=== PATIENT | female | born 1970 | race Caucasian/White ===

== ENCOUNTER → 2019-01-01 16:42 | Outpatient (CLI) | payer BC, SELFPAY | PROVIDERS: PCP Internal Medicine; Visit Provider Internal Medicine | DX: G47.33 Obstructive sleep apnea (adult) (pediatric) (principal); R40.0 Somnolence; R06.83 Snoring; R53.83 Other fatigue | CPT/HCPCS: G0399 ==

== ENCOUNTER → 2019-11-15 11:49 | Outpatient (CLI) | payer BC, SELFPAY ==
[2019-11-16 13:04] LABS: Covid-19 Nasal PCR Sendout Lex Not Detected
== END ==
PROVIDERS: Visit Provider Internal Medicine
DX: Z03.818 Encounter for observation for suspected exposure to other biological agents ruled out (principal)
CPT/HCPCS: U0004

== ENCOUNTER 2020-05-10 16:00 | Emergency (ER) | payer BC, SELFPAY ==
[2020-05-10 18:05] VITALS: BP 132/78; PULSE 69; RESP 17; TEMP 36.9; O2SAT 99; BMI 31.8
--- NOTE | 2020-05-10 18:26 | HMH.EDUTC ---
[facility] [place] Clinical Impression: Encounter for laboratory testing for COVID-19 virus Disposition: Home, Self-Care Condition on Discharge: Good Instructions: DI for COVID-19 (Suspected or Confirmed ), Coronavirus Disease 2019, Preventing the Spread of Coronavirus Discharge Instructions Additional Instructions: *Monitor Temp, Over the counter Motrin or Tylenol as directed/as needed Tylenol every 4 hours and Motrin every 6 hours (as long as your family doctor has told you that you can take it) for fever or pain. and straight to ER if unable to lower temp less than 101.0 after medication given Follow up IMMEDIATELY for new or worsening symptoms or no Noticeable improvement over the next 48-72 hours. 911 for difficulty breathing or swallowing You were tested for today for COVID19 your test result should be back in the next 24-48 hours, you may call to the [facility] to see if your test results are back in the next 48 hours [phone] [facility] hours are 9am-9pm You was given a handout with instructions for Self Quarantine and Self isolation for while you wait on test results and what to do if they are positive If you are positive the Health Dept will be contacting you also Referrals: Shahid Charlton [Primary Care Provider] - As needed Forms: Work/School Release Time of Disposition: 18:27 Medical Decision Making - Honorio Inquiry Pt receiving controlled substance: No Honorio was queried for this patient: No Vital Signs: 05/10/20 18:05 Temperature 98.4 F Temperature Source Oral Pulse Rate [Right Brachial] 69 Respiratory Rate 17 Blood Pressure [Right Arm] 132/7 L Blood Pressure Mean [Right Arm] 48 Blood Pressure Source [Right Arm] Automatic Cuff Blood Pressure Position [Right Arm] Sitting 02 Sat by Pulse Oximetry 99 Oxygen Delivery Method Room Air Orders (Tests/Meds): ORDERS Category Date Time Status Covid-19 Nasal PCR ([facility]) Routine Lab 05/10/20 17:58 Received [facility] [place] HPI - General Stated complaint: covid test Time Seen by Provider: 05/10/20 18:27 Mode of Arrival: Ambulatory Source of Information: Patient Limitations: No Limitations Description of Symptoms (Recalled from Triage Doc. by RN): COVID TEST. DENIES SYMPTOMS OR EXPOSURE. HAS SYMPTOMS HEENT Symptoms (Recalled from RN notes): No Resp Symptoms (Recalled from RN notes): No Skin Symptoms (Recalled from RN notes): No MS Symptoms (Recalled from RN notes): No Functional Status (Recalled from RN notes): WNL - History of Present Illness Provider Complaint: Patient state that she wants to get tested for COVID States that she is not having any symptoms but her has been - Related Data Allergies Allergy/AdvReac Type Severity Reaction Status Date / Time No Known Allergies Allergy Verified 05/10/20 18:21 - Worker's Comp Is this a Worker's Comp case?: No [facility] History - Hepatitis A Screen Drug use history?: No High risk sexual behaviors?: No History of sexually transmitted infection?: No Currently employed?: No Childcare worker?: No Do you have indoor plumbing?: Yes Do you have electricity?: Yes Attestation statement:: This patient has been screened for Hepatitis A risk factors. I have reviewed the patient's past medical history: Yes - Social History Alcohol Intake: never Occupational Status: other ROS Obtained: Yes All systems reviewed & no additional complaints, Yes Systems reviewed as appropriate & no additional complaints - Constitutional Constitutional: Reports system reviewed and no additional complaints, except as docu, Denies body ache, Denies chills, Denies fever(s), Denies headache(s) - ENT Ears, Nose, Mouth, and Throat: Reports system reviewed and no additional complaints, except as docu, Denies otalgia, Denies sinus pain, Denies sinus pressure, Denies sore throat - Cardiovascular Cardiovascular: Reports system reviewed and no additional complaints, except as docu - Respiratory Respiratory: Reports system r
[2020-05-10 18:31] VITALS: BP 132/78; PULSE 69; RESP 17; TEMP 36.9; O2SAT 99
== END 2020-05-10 18:33 | disposition home or self-care (01) ==
PROVIDERS: Emergency Provider Nurse Practitioner; PCP Internal Medicine
DX: Z20.822 Contact with and (suspected) exposure to COVID-19 (principal)
CPT/HCPCS: 99202; G0463; U0003

== ENCOUNTER → 2021-09-10 12:33 | Outpatient (CLI) | payer BC, SELFPAY ==
[2021-09-10 13:25] LABS: Basophils # 0.1 K/mm3 (0-0.2); Basophils % 0.7 % (0.1-2.0); Eosinophils # 0.1 K/mm3 (0.0-0.4); Eosinophils % 1.1 % (0.1-12.0); Hematocrit 45.1 % (37.0-47.0); Hemoglobin 14.7 g/dL (12.2-16.2); Lymphocytes # 2.4 K/mm3 (0.7-4.5); Lymphocytes % 28.3 % (10-50); Mean Corpuscular HGB Conc 32.7 g/dL (31.8-35.4); Mean Corpuscular Hemoglobin 29.9 pg (27.0-31.2); Mean Corpuscular Volume 91.3 fl (81-99); Mean Platelet Volume 7.9 fl (7.4-10.4); Monocytes # 0.4 K/mm3 (0.1-1.0); Monocytes % 4.7 % (1.7-9.3); Neutrophils # 5.4 K/mm3 (1.8-7.8); Neutrophils % 65.2 % (37.0-80.0); Platelet Count 437 K/mm3 (142-424); Red Blood Count 4.93 M/mm3 (4.20-5.40); Red Cell Distribution Width 14.9 % (11.5-17.5); White Blood Count 8.3 K/mm3 (4.8-10.8)
[2021-09-10 14:09] LABS: Chloride 106 mmol/L (98-107)
[2021-09-10 14:11] LABS: Alanine Aminotransferase 24 U/L (12-78); Alkaline Phosphatase 118 U/L (38-126); Aspartate Amino Transferase 27 U/L (14-36); Bilirubin,Total 0.4 mg/dl (0.2-1.3); Blood Urea Nitrogen 13 mg/dl (7-17); Estimated Glomerular Filt Rate 89 ml/min (>60); GFR (African American) 107 ML/MIN (>60)
[2021-09-10 14:12] LABS: Albumin Level 4.3 g/dl (3.5-5.0); Albumin/Globulin Ratio 1.5 (1.1-1.8); Calcium 9.7 mg/dl (8.4-10.2); Carbon Dioxide 25 mmol/L (22.0-30.0); Cholesterol 321 mg/dl (140-200); Globulin 2.9 g/dL (1.3-3.2); Glucose 106 mg/dl (74-100); HDL Cholesterol 48 mg/dl (40-60); Total Protein,Serum 7.2 g/dl (6.3-8.2); Triglycerides 272 mg/dl (30-150); VLDL Cholesterol 54 mg/dL (0-40)
[2021-09-10 14:21] LABS: Chol/HDL Ratio 6.7 (1-3.5); Sodium 139 mmol/L (136-145)
[2021-09-10 14:26] LABS: Anion Gap 12.8 mEq/L (5-15); Potassium 4.8 mmoL/L (3.5-5.1)
== END ==
PROVIDERS: PCP Internal Medicine; Visit Provider Internal Medicine
DX: F34.1 Dysthymic disorder (principal); R03.0 Elevated blood-pressure reading, without diagnosis of hypertension; N95.1 Menopausal and female climacteric states; R53.83 Other fatigue; G47.33 Obstructive sleep apnea (adult) (pediatric); G47.00 Insomnia, unspecified; Z83.3 Family history of diabetes mellitus
CPT/HCPCS: 80053; 80061; 84443; 85025

== ENCOUNTER → 2021-11-17 12:50 | Outpatient (CLI) | payer BC, SELFPAY ==
[2021-11-17 13:57] LABS: Alanine Aminotransferase 22 U/L (12-78); Albumin Level 3.9 g/dl (3.5-5.0); Albumin/Globulin Ratio 1.4 (1.1-1.8); Alkaline Phosphatase 114 U/L (38-126); Anion Gap 12.9 mEq/L (5-15); Aspartate Amino Transferase 23 U/L (14-36); Blood Urea Nitrogen 9 mg/dl (7-17); Calcium 9.1 mg/dl (8.4-10.2); Carbon Dioxide 24 mmol/L (22.0-30.0); Chloride 106 mmol/L (98-107); Chol/HDL Ratio 3.7 (1-3.5); Cholesterol 182 mg/dl (140-200); Estimated Glomerular Filt Rate 106 ml/min (>60); GFR (African American) 128 ML/MIN (>60); Globulin 2.8 g/dL (1.3-3.2); Glucose 102 mg/dl (74-100); HDL Cholesterol 49 mg/dl (40-60); Potassium 4.9 mmoL/L (3.5-5.1); Sodium 138 mmol/L (136-145); Total Protein,Serum 6.7 g/dl (6.3-8.2); Triglycerides 178 mg/dl (30-150); VLDL Cholesterol 36 mg/dL (0-40)
[2021-11-17 14:02] LABS: Bilirubin,Total < 0.1 mg/dl (0.2-1.3)
== END ==
PROVIDERS: PCP Internal Medicine; Visit Provider Internal Medicine
DX: R73.01 Impaired fasting glucose (principal); E78.5 Hyperlipidemia, unspecified; R53.83 Other fatigue; N95.9 Unspecified menopausal and perimenopausal disorder
CPT/HCPCS: 80053; 80061

== ENCOUNTER → 2022-04-27 11:41 | Outpatient (CLI) | payer BC, SELFPAY ==
[2022-04-27 13:13] LABS: Chloride 106 mmol/L (98-107); Potassium 5.4 mmoL/L (3.5-5.1); Sodium 142 mmol/L (136-145)
[2022-04-27 13:16] LABS: Alanine Aminotransferase 26 U/L (12-78); Albumin Level 4.3 g/dl (3.5-5.0); Albumin/Globulin Ratio 1.5 (1.1-1.8); Alkaline Phosphatase 114 U/L (38-126); Anion Gap 13.4 mEq/L (5-15); Aspartate Amino Transferase 25 U/L (14-36); Bilirubin,Total 0.3 mg/dl (0.2-1.3); Blood Urea Nitrogen 15 mg/dl (7-17); Calcium 9.2 mg/dl (8.4-10.2); Carbon Dioxide 28 mmol/L (22.0-30.0); Cholesterol 202 mg/dl (140-200); Estimated Glomerular Filt Rate 88 ml/min (>60); GFR (African American) 107 ML/MIN (>60); Globulin 2.8 g/dL (1.3-3.2); Glucose 116 mg/dl (74-100); Total Protein,Serum 7.1 g/dl (6.3-8.2); Triglycerides 162 mg/dl (30-150); VLDL Cholesterol 32 mg/dL (0-40)
[2022-04-27 13:17] LABS: Chol/HDL Ratio 3.7 (1-3.5); HDL Cholesterol 55 mg/dl (40-60)
[2022-04-27 13:27] LABS: Direct LDL Cholesterol 103.67 mg/dL (100-129)
== END ==
PROVIDERS: PCP Internal Medicine; Visit Provider Internal Medicine
DX: E78.5 Hyperlipidemia, unspecified (principal); F41.9 Anxiety disorder, unspecified; Z83.3 Family history of diabetes mellitus
CPT/HCPCS: 80053; 80061

== ENCOUNTER 2023-07-21 12:02 | Outpatient (CLI) | payer BC, SELFPAY ==
[2023-07-21 13:17] LABS: Basophils # 0.1 K/mm3 (0-0.2); Basophils % 1.8 % (0.1-2.0); Eosinophils % 0.1 % (0.1-12.0); Hemoglobin 14.7 g/dL (12.2-16.2); Lymphocytes # 0.9 K/mm3 (0.7-4.5); Lymphocytes % 16.8 % (10-50); Mean Corpuscular HGB Conc 31.9 g/dL (31.8-35.4); Mean Corpuscular Hemoglobin 29.8 pg (27.0-31.2); Mean Corpuscular Volume 93.3 fl (81-99); Mean Platelet Volume 8.1 fl (7.4-10.4); Monocytes # 0.3 K/mm3 (0.1-1.0); Monocytes % 6.8 % (1.7-9.3); Neutrophils # 3.8 K/mm3 (1.8-7.8); Neutrophils % 74.5 % (37.0-80.0); Platelet Count 301 K/mm3 (142-424); Red Blood Count 4.93 M/mm3 (4.20-5.40); Red Cell Distribution Width 14.9 % (11.5-17.5)
[2023-07-21 13:32] LABS: Chloride 102 mmol/L (98-107); Potassium 4.4 mmoL/L (3.5-5.1); Sodium 140 mmol/L (136-145)
[2023-07-21 13:34] LABS: Blood Urea Nitrogen 10 mg/dl (7-17); Estimated Glomerular Filt Rate 88 ml/min (>60); GFR (African American) 106 ML/MIN (>60)
[2023-07-21 13:35] LABS: Alanine Aminotransferase 90 U/L (12-78); Albumin Level 4.3 g/dl (3.5-5.0); Albumin/Globulin Ratio 1.5 (1.1-1.8); Alkaline Phosphatase 137 U/L (38-126); Anion Gap 15.4 mEq/L (5-15); Aspartate Amino Transferase 135 U/L (14-36); Bilirubin,Total 0.3 mg/dl (0.2-1.3); Carbon Dioxide 27 mmol/L (22.0-30.0); Chol/HDL Ratio 5.6 (1-3.5); Cholesterol 186 mg/dl (140-200); Globulin 2.8 g/dL (1.3-3.2); Glucose 123 mg/dl (74-100); HDL Cholesterol 33 mg/dl (40-60); Total Protein,Serum 7.1 g/dl (6.3-8.2); Triglycerides 165 mg/dl (30-150); VLDL Cholesterol 33 mg/dL (0-40)
[2023-07-21 13:46] LABS: Direct LDL Cholesterol 104.13 mg/dL (100-129)
== END 2023-07-21 23:59 ==
LOC: LAB.DROPOF 12:03
PROVIDERS: PCP Internal Medicine; Visit Provider Internal Medicine
DX: E78.5 Hyperlipidemia, unspecified (principal); G47.33 Obstructive sleep apnea (adult) (pediatric); F41.9 Anxiety disorder, unspecified; J31.0 Chronic rhinitis; J11.1 Influenza due to unidentified influenza virus with other respiratory manifestations
CPT/HCPCS: 80053; 80061; 85025

== ENCOUNTER 2023-09-08 13:40 | Outpatient (CLI) | payer BC, SELFPAY ==
[2023-09-08 14:35] LABS: Hemoglobin A1C 8.1 % (4.0-6.0)
[2023-09-08 15:18] LABS: Alanine Aminotransferase 21 U/L (12-78); Albumin Level 4.3 g/dl (3.5-5.0); Albumin/Globulin Ratio 1.5 (1.1-1.8); Alkaline Phosphatase 129 U/L (38-126); Anion Gap 13.8 mEq/L (5-15); Aspartate Amino Transferase 27 U/L (14-36); Bilirubin,Total 0.6 mg/dl (0.2-1.3); Blood Urea Nitrogen 9 mg/dl (7-17); Calcium 9.2 mg/dl (8.4-10.2); Carbon Dioxide 28 mmol/L (22.0-30.0); Chloride 102 mmol/L (98-107); Estimated Glomerular Filt Rate 105 ml/min (>60); GFR (African American) 127 ML/MIN (>60); Globulin 2.9 g/dL (1.3-3.2); Glucose 99 mg/dl (74-100); Potassium 4.8 mmoL/L (3.5-5.1); Sodium 139 mmol/L (136-145); Total Protein,Serum 7.2 g/dl (6.3-8.2)
== END 2023-09-08 23:59 | disposition home or self-care (01) ==
LOC: LAB.DROPOF 13:41
PROVIDERS: PCP Internal Medicine; Visit Provider Internal Medicine
DX: R74.8 Abnormal levels of other serum enzymes (principal); E78.5 Hyperlipidemia, unspecified; G47.33 Obstructive sleep apnea (adult) (pediatric); R73.9 Hyperglycemia, unspecified; F41.9 Anxiety disorder, unspecified
CPT/HCPCS: 80053; 83036

== ENCOUNTER 2024-04-29 13:52 | Outpatient (CLI) | payer BC, SELFPAY ==
[2024-04-29 12:51] LABS: Creatinine,Urine Random 111 mg/dL (Not Estab.); Hemoglobin A1C 6.6 % (4.0-6.0)
[2024-04-29 12:53] LABS: Alanine Aminotransferase 26 U/L (12-78); Alkaline Phosphatase 105 U/L (38-126); Aspartate Amino Transferase 31 U/L (14-36); Bilirubin,Total 0.6 mg/dl (0.2-1.3); Blood Urea Nitrogen 15 mg/dl (7-17); Calcium 9.3 mg/dl (8.4-10.2); Chloride 106 mmol/L (98-107); Chol/HDL Ratio 4.6 (1-3.5); Cholesterol 227 mg/dl (140-200); Estimated Glomerular Filt Rate 88 ml/min (>60); GFR (African American) 106 ML/MIN (>60); Glucose 120 mg/dl (74-100); HDL Cholesterol 49 mg/dl (40-60); Potassium 4.7 mmoL/L (3.5-5.1); Sodium 139 mmol/L (136-145); Total Protein,Serum 6.8 g/dl (6.3-8.2); Triglycerides 307 mg/dl (30-150); VLDL Cholesterol 61 mg/dL (0-40)
[2024-04-29 12:54] LABS: Microalbumin/Creatinine Ratio 15.3
[2024-04-29 13:04] LABS: Direct LDL Cholesterol 133.96 mg/dL (100-129)
[2024-04-29 15:52] LABS: Anion Gap 11.7 mEq/L (5-15); Carbon Dioxide 26 mmol/L (22.0-30.0)
[2024-04-29 15:53] LABS: Albumin Level 4.3 g/dl (3.5-5.0); Albumin/Globulin Ratio 1.7 (1.1-1.8); Globulin 2.5 g/dL (1.3-3.2)
== END 2024-04-29 23:59 | disposition home or self-care (01) ==
LOC: LAB.DROPOF 13:52
PROVIDERS: PCP Internal Medicine; Visit Provider Internal Medicine
DX: E78.5 Hyperlipidemia, unspecified (principal); E11.9 Type 2 diabetes mellitus without complications; Z79.84 Long term (current) use of oral hypoglycemic drugs; Z79.85 Long-term (current) use of injectable non-insulin antidiabetic drugs
CPT/HCPCS: 80053; 80061; 82043; 82570; 83036